=== PATIENT | female | born 2000 | race Caucasian/White ===

== ENCOUNTER 2022-02-25 13:51 | Emergency (ER) | payer OTHER, SELFPAY ==
--- NOTE | ~2022-02-25 | XR_ITS ---
XR hand RT min 3V 02/25/2022 14:15 INDICATION: Right hand pain PROCEDURE: 3 views right hand COMPARISON: No prior studies for comparison. FINDINGS: Fracture, dislocation or subluxation is not identified. The soft tissues appear within norm al limits. No foreign bodies are identified. IMPRESSION: 1: NO ACUTE BONE OR JOINT ABNORMALITY IDENTIFIED. Reviewed, dictated and finalized at location A.
[2022-02-25 14:04] VITALS: BP 120/66; PULSE 94; RESP 16; TEMP 37.1; O2SAT 99
--- NOTE | 2022-02-25 14:34 | ED.UPPEXIN ---
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. Patient is unsure of exactly what happened, thinks she may of hit it on cooler when she was getting out bottles of beer. Patient has pain to her right hand along pinky side of hand with discomfort also to the 5th finger with some bruising noted, no obvious deformity noted, pulses to right wrist strong with nail beds having brisk capillary refill. MD complaint: injury to: right and hand Onset (ago): hour(s) (last night) Other Extremity Injury: Right: hand Severity scale (1-10): 3 Treatments prior to arrival: NSAIDS Related Data Home Medications Medication Instructions Recorded Confirmed levonorgestrel 20 mcg/24 hours (8 1 device intrauterine ONCE 02/25/22 02/25/22 yrs) 52 mg intrauterine device (Mirena) Allergies Allergy/AdvReac Type Severity Reaction Status Date / Time No Known Allergies Allergy Verified 02/25/22 14:30 Review of Systems Review of Systems: CONSTITUTIONAL: Denies fever, chills, or sweats. CARDIOVASCULAR: Denies chest pain, palpitations, or edema. RESPIRATORY: Denies cough or dyspnea. SKIN: Denies rash or itching. Denies lacerations or abrasions MUSCULOSKELETAL: Reports pain to right hand pinky side with some pain and bruising to her 5th finger NEUROLOGIC: Denies numbness, or weakness. All systems reviewed & are unremarkable except as noted in HPI and below PMFSH Past Medical History Medical History (Updated 03/04/22 @ 06:45 by Sudha Garcia NP) Sinusitis Social History Social History (Updated 03/04/22 @ 06:43 by Sudha Garcia NP) Smoking status: Current every day smoker Tobacco type: e-cigarettes/vaping Alcohol intake: current Alcohol use details: social Substance use type: does not use Living arrangements: with family Gender identity (if verbalized by the patient): Female Comments At time of signature, agree with nursing past medical, surgical, social and family history. There is no relevant family history pertinent to the presenting complaint Exam Narrative: GENERAL: Well-appearing, well-nourished, and in no acute distress. HEAD: Normocephalic, atraumatic. EYES: PERRLA, conjunctivae clear NECK: Supple. CHEST: Speaks in full sentences. No respiratory distress. HEART: Regular rate and rhythm. Normal and equal peripheral pulses. EXTREMITIES:right hand has normal strength and sensation, normal range of motion. No edema some ecchymosis 5th finger.. 5/5 strength with normal flexion and extension. Normal sensation with sensitivity to light touch and pain. right 5th finger point tenderness.? ?No open wounds, no skin tenting, no devitalized tissue or atrophy, no trophic changes, no obvious deformity, alignment normal, nearby joints and structures intact. Distal pulses palpable and equal bilaterally, skin warm, dry, pink. Capillary refill less than 3 seconds. Course Course Level of Care: Express Care Visit Vital Signs Vital signs: Vital Signs Temperature 37.1 C 02/25/22 14:04 Pulse Rate 94 02/25/22 14:04 Respiratory Rate 16 02/25/22 14:04 Blood Pressure 120/66 02/25/22 14:04 Pulse Oximetry 99 02/25/22 14:04 Oxygen Delivery Room Air 02/25/22 14:04 Temperature 37.1 C 02/25/22 14:04 Pulse Rate 94 02/25/22 14:04 Respiratory Rate 16 02/25/22 14:04 Blood Pressure 120/66 02/25/22 14:04 Pulse Oximetry 99 02/25/22 14:04 Oxygen Delivery Room Air 02/25/22 14:04 MDM - Extremity Injury (Upper) MDM Narrative Medical decisi
== END 2022-02-25 14:45 | disposition home or self-care (01) ==
PROVIDERS: Emergency Provider Registered Nurse; PCP Family Medicine
DX: S60.221A Contusion of right hand, initial encounter (principal); X58.XXXA Exposure to other specified factors, initial encounter; Y99.0 Civilian activity done for income or pay; F17.290 Nicotine dependence, other tobacco product, uncomplicated
CPT/HCPCS: 73130; 99203; G0463